=== PATIENT | female | born 1980 | race Caucasian/White ===

== ENCOUNTER 2019-05-28 18:12 | Outpatient (CLI) | payer BC, SELFPAY | END 2019-05-28 18:13 | disposition home or self-care (01) | LOC: ANHLAB 18:15 | PROVIDERS: Visit Provider Nurse Practitioner | DX: L02.91 Cutaneous abscess, unspecified (principal) | CPT/HCPCS: 87070; 87075; 87076; 87205 ==

== ENCOUNTER → 2019-10-01 11:15 | Outpatient (REF) | payer BC, SELFPAY | LOC: ANHLAB 11:15 | PROVIDERS: Visit Provider Nurse Practitioner | DX: D22.72 Melanocytic nevi of left lower limb, including hip (principal) | CPT/HCPCS: 88305 ==

== ENCOUNTER → 2019-11-19 07:44 | Outpatient (REF) | payer BC, SELFPAY | LOC: ANHLAB 07:44 | PROVIDERS: PCP Internal Medicine; Visit Provider Nurse Practitioner | DX: L98.9 Disorder of the skin and subcutaneous tissue, unspecified (principal) | CPT/HCPCS: 88305 ==